=== PATIENT | male | born 1945 | race Caucasian/White ===

== ENCOUNTER 2020-12-29 08:14 | Day surgery (SDC) | payer OTHER ==
[~2020-12-29] VITALS: Ht 177.8 cm; Wt 83.9 kg
[~2020-12-29 08:14] MED LIST: ASA81BEC PO; BIMATOPROST2.5 ML OPHTHALMIC; CO-ENZYME Q-1010 MG PO; COSOPT OCUMETER10 M1 OPHTHALMIC; FISH OIL 1,0001 EAC9 PO; GLUCOSAMINE &1 EACH PO; LOVASTATIN40 MG PO; METOPROLOL SUCC25 M1 PO; SAW PALMETTO500 MG PO
[2020-12-29 09:17] VITALS: BP 194/78
[2020-12-29] MEDS ORDERED: HYDROCODON-ACE1 EAC7 PO (10:47)
[2020-12-29 12:56] VITALS: BP 194/78
--- NOTE | 2020-12-29 14:25 | O ---
[facility] [place] [address] OPERATIVE REPORT Name: LO ARREGUIN Room #: 150-3 [facility]..#: [id number] Admission: 12/29/20 Attend Phys: Darryn Meza MD Discharge: Date of : 47 Report #: [id number] THIS REPORT FOR: cc: Rodrigo Christine MD,Rodrigo Meza,Darryn Goodrich MD ~ cc: Rodrigo Christine MD, Beckie Roque, FELISA DATE OF SERVICE: 12/29/[address] Darryn Meza and Dr. Rodrigo Christine and Beckie Roque, nurse practitioner. Dr. Christine and Beckie Roque are at [facility]. PREOPERATIVE DIAGNOSIS: Left inguinal hernia. POSTOPERATIVE DIAGNOSIS: Left inguinal hernia. PROCEDURE: Left inguinal hernia repair with Prolene hernia system mesh. SURGEON: aDrryn Meza MD ANESTHESIA: Local IV sedation. DESCRIPTION OF PROCEDURE: The patient was brought to the operating room and placed on the operating table in the supine position. Sequential compression devices were in place for DVT prophylaxis. There was no indication for preoperative antibiotics. The patient underwent IV sedation and the left inguinal area was prepped and draped in a sterile fashion. Skin and subcutaneous tissue were then infiltrated with 0.5% Marcaine, 1% Xylocaine with epinephrine. A left inguinal skin incision was then performed using #10 scalpel blade. Hemostasis obtained using the electrocautery as well as clamps and 2-0 chromic ties. Dissection was carried down through subcutaneous tissue, the external oblique fascia, which was then incised with a knife and opened with the Metzenbaum scissors. The ilioinguinal nerve was identified, dissected free, injected with a local mixture and preserved. The cord was then elevated and held in place with a [place] drain. Cremasteric muscle fibers were then split in the direction of their fibers using clamp and electrocautery. There was no indirect inguinal hernia sac. The floor was then inspected and there was a moderate-sized direct inguinal hernia defect. This direct inguinal hernia sac was then dissected free and then incised just above the level of the floor. The peritoneum was excised and the preperitoneal space was then developed using blunt dissection. An extended Prolene hernia system mesh was then inserted through the floor and the underlay patch was then deployed in the preperitoneal space. The connector was left in the internal ring and the floor was then closed and tightened over the underlay patch using a running 2-0 Prolene 2-layer Shouldice repair. The overlay patch was then deployed into the inguinal canal [address] [address] OPERATIVE REPORT Name: LO ARREGUIN Room #: 150-3 [facility] M..#: [id number] Admission: 12/29/20 Attend Phys: Darryn Meza MD Discharge: Date of : 47 Report #: [id number] and it was secured to the pubic tubercle with the same running 2-0 Prolene suture. It was then secured superiorly and at the connector using simple interrupted 2-0 Vicryl sutures. The mesh was split and wrapped around the cord and secured to the inguinal ligament with simple interrupted 2-0 Vicryl suture. The cord and ilioinguinal nerve were then returned to the canal intact. The external oblique fascia was then closed using a running 2-0 Vicryl suture. Roberto's fascia was then re-approximated using 3 simple interrupted 2-0 chromic sutures and the skin was then closed with a running 4-0 subcuticular Vicryl stitch. The wound was then dressed with Mastisol, 1/2-inch Steri-Strips cut in half, Telfa, 4 x 4 gauze, sponge and tape. The patient was then awakened from the IV sedation and taken to the recovery room in good condition. Estimated blood loss was approximately 5 mL and the patient tolerated the procedure well. All sponge, lap and instrument counts were correct x 2. <ELECTRONICALLY SIGNED> By: Darryn Meza MD 12/29/20 1425 [id number] Darryn Meza MD /nt
--- NOTE | 2020-12-31 07:10 | EKG ---
[address] [address] ELECTROCARDIOGRAM REPORT Name: LO ARREGUIN Room #: [facility]#: [id number] Admission: 12/29/20 Attend Phys: Darryn Meza MD Discharge: 12/29/20 Date of : 47 Report #: [id number] [facility] ED Test Date: 2020-12-29 Test Time: 09:06:51 Pat Name: LO ARREGUIN Department: Room: Gender: [employer]rent[employer] [place]: : 1945 Requested By: Darryn Meza Order Number: [id number] : Dmitri Jane Measurements Intervals [place] Rate: 62 P: 26 MT: 190 QRS: -34 QRSD: 92 T: 3 QT: 403 QTc: 410 Interpretive Statements Sinus bradycardia Nonspecific intraventricular conduction delay No previous ECG available for comparison Electronically Signed On 12-31-2020 7:10:18 CDT by Dmitri Jane [email or web address] <ELECTRONICALLY SIGNED> By: Dmitri Jane MD, [facility] 12/31/20 0710 [id number] Dmitri Jane MD, FACC /EPI
== END 2020-12-29 15:30 | disposition home or self-care (01) ==
LOC: TBA 08:14 → OR 08:14 → TBA 08:16 → OR 11:58
PROVIDERS: ATTEND Surgery
DX: K40.90 Unilateral inguinal hernia, without obstruction or gangrene, not specified as recurrent (principal); I10 Essential (primary) hypertension; E78.5 Hyperlipidemia, unspecified; H40.9 Unspecified glaucoma; Z98.890 Other specified postprocedural states; Z79.899 Other long term (current) drug therapy; Z98.41 Cataract extraction status, right eye; Z98.42 Cataract extraction status, left eye; Z79.82 Long term (current) use of aspirin
CPT/HCPCS: 50010; 50101; 50386; 50403; 56524; 56525; 56526; 56528; 58646; 62110; 62850; 70005